=== PATIENT | female | born 1955 | race Caucasian/White ===

== ENCOUNTER 2021-04-21 23:19 | Emergency (ER) | payer MEDICARE, OTHER ==
[~2021-04-21] VITALS: Ht 172 cm; Wt 72.5 kg
[2021-04-21] MEDS ORDERED: ONDANSETRON 4 MG (ZOFRAN) ORAL DISSOLVE TAB PO STA (23:44)
[2021-04-21] MEDS ORDERED: LABETALOL HCL 20 MG/4 ML VIAL IV ONE (23:45)
[2021-04-22] MEDS ORDERED: hydrALAZINE (APESOLINE) 20 MG/ML VIAL IV ONE ×2 (01:00→02:00)
[2021-04-22 01:05] LABS: BASOPHILS % (AUTO) 0 % (0-10); EOSINOPHILS % (AUTO) 0 % (0-10); HEMATOCRIT 40 % (35-52); HEMOGLOBIN 13.6 g/dL (11.5-16.0); LYMPHOCYTES # (AUTO) 1.2 10^3/uL (1.0-4.0); LYMPHOCYTES % (AUTO) 13 % (12-44); MEAN CORPUSCULAR HEMOGLOBIN 29 pg (25-34); MEAN CORPUSCULAR HGB CONC 34 g/dL (32-36); MEAN CORPUSCULAR VOLUME 85 fL (80-99); MEAN PLATELET VOLUME 10.1 fL (9.0-12.2); MONOCYTES # (AUTO) 0.8 10^3/uL (0.0-1.0); MONOCYTES % (AUTO) 8 % (0-12); NEUTROPHILS # (AUTO) 7.5 10^3/uL (1.8-7.8); NEUTROPHILS % (AUTO) 78 % (42-75); PLATELET COUNT 310 10^3/uL (130-400); WHITE BLOOD COUNT 9.7 10^3/uL (4.3-11.0)
[2021-04-22 01:09] LABS: ALBUMIN 4.7 GM/DL (3.2-4.5); CHLORIDE 92 MMOL/L (98-107); POTASSIUM 3.3 MMOL/L (3.6-5.0); SODIUM 130 MMOL/L (135-145)
[2021-04-22 01:10] LABS: CALCIUM 10.2 MG/DL (8.5-10.1)
[2021-04-22 01:12] LABS: GLUCOSE 128 MG/DL (70-105); TOTAL PROTEIN 7.9 GM/DL (6.4-8.2)
[2021-04-22 01:13] LABS: BILIRUBIN,TOTAL 0.4 MG/DL (0.1-1.0); CARBON DIOXIDE 17 MMOL/L (21-32)
[2021-04-22 01:15] LABS: ALKALINE PHOSPHATASE 64 U/L (40-136); CREATININE SERUM 0.73 MG/DL (0.60-1.30); GFR ESTIMATED > 60
[2021-04-22 01:16] LABS: BUN/CREATININE RATIO 22
[2021-04-22 01:18] LABS: ALANINE AMINOTRANSFERASE 22 U/L (0-55); MAGNESIUM 1.8 MG/DL (1.6-2.4)
[2021-04-22] MEDS ORDERED: KCL 10 MEQ TAB (MICRO K) PO ONE (01:30)
--- NOTE | 2021-04-22 01:32 | ED General ---
General Stated Complaint: STENT PLACED IN LEG/HYPERTENSION/SEYMOUR/VOMITTING Source of Information: Patient History of Present Illness Date Seen by Provider: Apr 21, 2021 Time Seen by Provider: 23:32 Initial Comments PT ARRIVES VIA POV FROM HOME STATES SHE HAD BILATERAL LEG STENTS BY DR. TRAN AT [place] YESTERDAY--A PLANNED PROCEDURE PT HAD NO COMPLICATIONS DURING OR IMMEDIATELY AFTER THE PROCEDURE PT STATES SINCE YESTERDAY, EVEN PRIOR TO THE PROCEDURE AND AFTER, SHE HAS HAD A SEVERE GENERALIZED HEADACHE, NAUSEA AND VOMITING--HAS VOMITED X 3 TODAY. STATES SHE ALWAYS THROWS UP WITH IV ZOFRAN, BUT DOES NOT HAVE PROBLEMS WITH ORAL ZOFRAN. ALSO STATES SHE HAS HAD ELEVATED BLOOD PRESSURE SINCE THE PROCEDURE PT STATES SHE TOOK ALL OF HER MEDICATIONS YESTERDAY AFTER THE PROCEDURE AND HAS TAKEN ALL OF HER MEDICATIONS TODAY NO VISION CHANGES NO DIZZINESS NO SYNCOPE NO PALPITATIONS NO CHEST PAIN NO SHORTNESS OF BREATH NO PARESTHESIAS OR MOTOR DEFICITS NO SWELLING IN LEGS/ FEET OR PAIN IN CALVES. NO ABDOMINAL PAIN CURRENT MEDICATIONS: -GEMFIBROZIL 600 MG 2 DAILY -OMEPRAZOLE 20 MG 1 DAILY -SOTALOL 80 MG 2 DAILY -FENOFIBRATE 145 MG 1 DAILY -LOSARTAN / HCTZ -100 MG/ 25 MG 1 DAILY -PLAVIX 75 MG 1 DAILY -AMLODIPINE 5 MG 1 DAILY -METFORMIN 500 MG 1 TWICE A DAY -OVER THE COUNTER POTASSIUM--UNKNOWN DOSE PCP: DR. WOODS IN [place] GALVANIZER: DR. TRAN, [place] Allergies and Home Medications Allergies Coded Allergies: No Allergy Information Available (Unverified , 04/21/21) Home Medications Potassium Chloride 20 Meq Tablet.er, 20 MEQ PO DAILY Prescribed by: JOHNNY SAEZ on 04/22/21 0216 Patient Home Medication List Home Medication List Reviewed: Yes Review of Systems Review of Systems Constitutional: no symptoms reported; No chills, No diaphoresis, No dizziness, No fever EENTM: no symptoms reported; No blurred vision, No double vision Respiratory: no symptoms reported; No cough, No short of breath Cardiovascular: see HPI; No chest pain, No edema, No palpitations, No syncope Gastrointestinal: see HPI; No abdominal pain; nausea, vomiting Genitourinary: no symptoms reported Musculoskeletal: no symptoms reported Skin: no symptoms reported Psychiatric/Neurological: See HPI, Headache; Denies Numbness, Denies Paresthesia, Denies Seizure, Denies Tingling, Denies Weakness Hematologic/Lymphatic: No Symptoms Reported Immunological/Allergic: no symptoms reported Past Ilwekxx-Bbkwkx-Jzujoe Hx Past Med/Social Hx: Reviewed and Corrections made Patient Social History Alcohol Use: Denies Use Drug of Choice: DENIES Smoking Status: Former Smoker (1 PPD, QUIT 2007) Type Used: Cigarettes Past Medical History Surgeries: Yes (BILATERAL LEG STENTS 04/20/[address] TRAN AT [place]) Appendectomy, Gallbladder, Hysterectomy, Oophorectomy, Tonsillectomy, Vascular Surgery Respiratory: No Cardiac: Yes High Cholesterol, Hypertension, Irregular Heartbeat, Peripheral Vascular Neurological: Yes (OLD INFARCTS NOTED ON CT SCAN OF HEAD--NO KNOWN HX OF STROKES BY PT. 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 oz. kg; BMI Method: General Appearance: No Apparent Distress, WD/WN HEENT: PERRL/EOMI, Other (VERY POOR DENTITION, MOST TEETH MISSING AND FEW REMAINING TEETH WITH EXTENSIVE DECAY) Neck: Normal Inspection Respiratory: Normal Breath Sounds, No Accessory Muscle Use, No Respiratory Distress Cardiovascular: Regular Rate, Rhythm, No Edema, No JVD, No Murmur, Normal Peripheral Pulses Gastrointestinal: No Pulsatile Mass, Non Tender, Soft Extremity: Normal Capillary Refill, Normal Inspection, Normal Range of Motion, Non Tender, No Calf Tenderness, No Pedal Edema Neurologic/Psychiatric: Alert, Oriented x3, No Motor/Sensory Deficits, Normal 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, 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 Norm as Tested Skin: Normal Color, Warm/Dry Progress/Results/Core Measures Suspected Sepsis SIRS Temperature: Pulse: Respiratory Rate: Laboratory Tests 04/22/21 00:45: White Blood Count 9.7 Blood Pressure / Mean: Laboratory Tests 04/22/21 00:45: Creatinine 0.73, Platelet Count 310, Total Bilirubin 0.4 Results/Orders Lab Results Laboratory Tests Test 04/22/21 00:45 04/22/21 01:13 Range/Units White Blood Count 9.7 4.3-11.0 10^3/uL Red Blood Count 4.67 3.80-5.11 10^6/uL Hemoglobin 13.6 11.5-16.0 g/dL Hematocrit 40 35-52 % Mean Corpuscular Volume 85 80-99 fL Mean Corpuscular Hemoglobin 29 25-34 pg Mean Corpuscular Hemoglobin Concent 34 32-36 g/dL Red Cell Distribution Width 13.7 10.0-14.5 % Platelet Count 310 130-400 10^3/uL Mean Platelet Volume 10.1 9.0-12.2 fL Immature Granulocyte % (Auto) 0 % Neutrophils (%) (Auto) 78 H 42-75 % Lymphocytes (%) (Auto) 13 12-44 % Monocytes (%) (Auto) 8 0-12 % Eosinophils (%) (Auto) 0 0-10 % Basophils (%) (Auto) 0 0-10 % Neutrophils # (Auto) 7.5 1.8-7.8 10^3/uL Lymphocytes # (Auto) 1.2 1.0-4.0 10^3/uL Monocytes # (Auto) 0.8 0.0-1.0 10^3/uL Eosinophils # (Auto) 0.0 0.0-0.3 10^3/uL Basophils # (Auto) 0.0 0.0-0.1 10^3/uL Immature Granulocyte # (Auto) 0.0 0.0-0.1 10^3/uL Sodium Level 130 L 135-145 MMOL/L Potassium Level 3.3 L 3.6-5.0 MMOL/L Chloride Level 92 L 98-107 MMOL/L Carbon Dioxide Level 17 L 21-32 MMOL/L Anion Gap 21 H 5-14 MMOL/L Blood Urea Nitrogen 16 7-18 MG/DL Creatinine 0.73 0.60-1.30 MG/DL Estimat Glomerular Filtration Rate > 60 BUN/Creatinine Ratio 22 Glucose Level 128 H 70-105 MG/DL Calcium Level 10.2 H 8.5-10.1 MG/DL Corrected Calcium 8.5-10.1 MG/DL Magnesium Level 1.8 1.6-2.4 MG/DL Total Bilirubin 0.4 0.1-1.0 MG/DL Aspartate Amino Transf (AST/SGOT) 21 5-34 U/L Alanine Aminotransferase (ALT/SGPT) 22 0-55 U/L Alkaline Phosphatase 64 40-136 U/L Total Protein 7.9 6.4-8.2 GM/DL Albumin 4.7 H 3.2-4.5 GM/DL TSH [place] Testing 0.88 0.35-4.94 UIU/ML Glucometer 141 H 70-110 MG/DL My Orders Orders - JOHNNY SAEZ DO Ed Iv/Invasive Line Start (04/21/21 23:31) Ekg Tracing (04/21/21 23:31) Monitor-Rhythm Ecg Trace Only (04/21/21 23:31) Cbc With Automated Diff (04/21/21:31) Comprehensive Metabolic Panel (04/21/21:31) Magnesium (04/21/21:31) Thyroid Analyzer (04/21/21:31) Labetalol Injection (Normodyne Injection (04/21/21 23:45) Ondansetron Oral Dissolve Tab (Zofran (04/21/21 23:44) Ct Head Wo-R/O Stroke (04/22/21 00:01) Chest 1 View, Ap/Pa Only (04/22/21 00:01) Hydralazine Injection (Apresoline Inject (04/22/21 01:00) Accucheck Stat ONCE (04/22/21 01:06) Potassium Chloride (Tablet) (Klor Con Ta (04/22/21 01:30) Hydralazine Injection (Apresoline Inject (04/22/21 02:00) Amlodipine Tablet (Norvasc Tablet) (04/22/21 02:00) Hydrochlorothiazide Cap/Tablet (Hctz Cap (04/22/21 02:00) Rx-Ondansetron Po (Rx-Zofran Po) (04/22/21 02:50) Medications Given in ED Current Medications Medications Dose Ordered Sig/Christiana Route Start Time Stop Time Status Last Admin Dose Admin Amlodipine Besylate 10 mg ONCE ONCE PO 04/22/21 02:00 04/22/21 02:01 DC 04/22/21 02:12 10 MG Hydralazine HCl 10 mg ONCE ONCE IV 04/22/21 01:00 04/22/21 01:01 DC 04/22/21 01:03 10 MG Hydralazine HCl 10 mg ONCE ONCE IV 04/22/21 02:00 04/22/21 02:01 DC 04/22/21 02:12 10 MG Hydrochlorothiazide 25 mg ONCE ONCE PO 04/22/21 02:00 04/22/21 02:01 DC 04/22/21 02:18 25 MG Labetalol HCl 20 mg ONCE ONCE IV 04/21/21 23:45 04/21/21 23:46 DC 04/21/21 23:50 20 MG Potassium Chloride 20 meq ONCE ONCE PO 04/22/21 01:30 04/22/21 01:31 DC 04/22/21 02:11 20 MEQ Vital Signs/I&O 04/21/21 04/22/21 23:29 02:45 Temp 37.0 37.0 Pulse 72 72 Resp 20 20 B/P (MAP) 250/116 (160) 175/94 (160) Pulse Ox 96 96 O2 Delivery Room Air Room Air Capillary Refill : Point of Care Testing Finger Stick Blood Glucose: 141 Blood Glucose Action Taken: notified Progress Note : Progress Note GIVEN IV LABETALOL AND HYDRALAZINE, WELL ORAL AMLODIPINE, AND HYDROCHLOROTHIAZIDE, WELL POTASSIUM ADDITIONALLY GAVE ZOFRAN ODT FOR NAUSEA WITH IMPROVEMENT BP DOWN TO 170'S/70'S AT DISMISSAL NAUSEA RESOLVED WITH ZOFRAN HEADACHE RESOLVED AT DISMISSAL ECG Initial ECG Impression Date: Apr 21, 2021 Initial ECG Impression Time: 23:40 Initial ECG Rate: 72 Initial ECG Rhythm: Normal Sinus Diagnostic Imaging Comments CXR--NO ACUTE PROCESS, PENDING RADIOLOGIST REVIEW CT HEAD--NO ACUTE PROCESS, 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 TRAN 0145--SPOKE WITH DR. TRAN, HE ADVISES TO INCREASE AMLODIPINE TO 10 MG, ADD DYAZIDE IF NOT ALREADY ON DIURETIC, AND HE WILL FOLLOW UP IN OFFICE. Impression Primary Impression: Hypertensive urgency Additional Impressions: S/P RECENT LOWER EXTREMITY STENTING NIDDM Hypokalemia Disposition: 01 HOME, SELF-CARE Condition: Improved Departure-Patient Inst. Decision time for Depature: 02:45 Referrals: NO,LOCAL PHYSICIAN (PCP/Family) Primary Care Physician Patient Instructions: DASH Diet, High Blood Pressure Emergencies, Hypokalemia (DC) Add. Discharge Instructions: INCREASE YOUR AMLODIPINE TO 10 MG DAILY ( TAKE TWO 5 MG TABLETS DAILY) CONTINUE ALL OF YOUR OTHER MEDICATIONS PRESCRIBED FOLLOW UP WITH DR. TRAN IN 2-3 DAYS FOR FURTHER CARE, RETURN TO ER IF SYMPTOMS RETURN / WORSEN Scripts Potassium Chloride (Potassium Chloride) 20 Meq Tablet.er 20 MEQ PO DAILY, #30 TAB Prov: JOHNNY SAEZ DO 04/22/21 JOHNNY SAEZ DO Apr 22, 2021 01:31
[2021-04-22 01:38] LABS: TSH (THYROID ANALYZER) 0.88 UIU/ML (0.35-4.94)
[2021-04-22] MEDS ORDERED: amLODIPine 10 MG (NORVASC) TAB PO ONE (02:00)
[2021-04-22] MEDS ORDERED: POTA-51 PO (02:16)
[2021-04-22 02:45] VITALS: BP 175/94
[2021-04-22] MEDS ORDERED: RX-ONDANSETRON 4 MG ODT (ZOFRAN) PPK #4 PO STA (02:50)
--- NOTE | 2021-04-22 06:58 | Diagnostic Imaging Report ---
EXAMINATION: Chest radiograph, portable AP view. DATE: 04/22/2021 12:27 AM INDICATION: 66-year-old female, hypertension. COMPARISON: None. FINDINGS: Heart size and mediastinal contours are unremarkable. There is no identified pneumothorax. There is no large pleural effusion. There is no identified focal airspace consolidation. There are probable left carotid vascular calcifications. IMPRESSION: 1. No identified acute cardiopulmonary abnormality. Dictated by: Dictated on workstation # [id number]
--- NOTE | 2021-04-22 07:31 | Diagnostic Imaging Report ---
PROCEDURE: CT head wo r/o stroke. TECHNIQUE: Multiple contiguous axial images were obtained through the brain without the use of intravenous contrast. Auto Exposure Controls were utilized during the CT exam to meet ALARA standards for radiation dose reduction. INDICATION: Neurological deficit. Headache, nausea, dizziness, hypertension COMPARISON: None FINDINGS: The ventricles and cortical sulci are mildly prominent, likely from generalized parenchymal volume loss. There is no midline shift or mass effect. No acute intracranial hemorrhage is seen. There are scattered areas of hypodensity in the periventricular and subcortical white matter which are likely from chronic microvascular disease. There may be old lacunar infarcts in the basal ganglia bilaterally. No CT evidence of acute territorial ischemia is seen. The calvarium appears intact. Visualized paranasal sinuses are clear. IMPRESSION:. Findings of chronic microvascular disease with no CT evidence of acute territorial ischemia, and no acute intracranial hemorrhage. Findings reported to Dr. Carrillo at 12:49 AM on 04/22/2021 by the overnight preliminary radiology service. No significant changes from the preliminary report. Dictated by: Dictated on workstation # [id number]
== END 2021-04-22 02:45 | disposition home or self-care (01) ==
LOC: ER 23:23
DX: I16.0 Hypertensive urgency (principal); E11.65 Type 2 diabetes mellitus with hyperglycemia; E87.6 Hypokalemia; I10 Essential (primary) hypertension; Z95.820 Peripheral vascular angioplasty status with implants and grafts; Z87.891 Personal history of nicotine dependence
CPT/HCPCS: 36415; 70450; 71045; 80053; 82947; 83735; 84443; 85025; 93005; 93041